=== PATIENT | female | born 1980 | race Two or more races ===

== ENCOUNTER 2020-10-07 04:49 | Day surgery (SDC) | payer OTHER ==
[2020-10-02 18:05] VITALS: BMI 34.0
[2020-10-07] MEDS ORDERED: oxyCODONE HCL 5 MG TABLET PO PRN (16:15)
[2020-10-07] MEDS ORDERED: IBUPROFEN 800 MG/8 ML IJ IVPB PRN (16:15)
[2020-10-07] MEDS ORDERED: ELECTROLYTE-148 SOLN 1,000 ML IV SCH (16:15)
[2020-10-07] MEDS ORDERED: ONDANSETRON 4 MG/2 ML VIAL IVPUSH PRN ×2 (16:15→17:56)
[2020-10-07] MEDS ORDERED: IBUPROFEN 600 MG TABLET (FP) PO PRN (16:15)
[2020-10-07] MEDS ORDERED: MIDAZOLAM HCL 2 MG/2 ML SINGLE DOSE VIAL ONE (16:36)
[2020-10-07] MEDS ORDERED: PROPOFOL 20 ML ONE (16:36)
[2020-10-07] MEDS ORDERED: DEXAMETHASONE SOD PHOSPHATE 4 MG/1 ML VIAL ONE (17:45)
[2020-10-07] MEDS ORDERED: LACTATED RINGERS SOLUTION 1,000 ML IV SCH (18:00)
[2020-10-07 20:10] VITALS: BP 116/56; PULSE 68; TEMP 98
== END 2020-10-07 19:55 | disposition home or self-care (01) ==
LOC: JASU-SURG 04:49
PROVIDERS: ATTEND Obstetrics & Gynecology
PROC: 0UB98ZZ Excision of Uterus, Via Natural or Artificial Opening Endoscopic (ICD-10-PCS; principal; 2020-10-07 15:30)
DX: D25.0 Submucous leiomyoma of uterus (principal)
CPT/HCPCS: 36415; 84703; 86850; 86900; 86901; 86922; 88305-TC; 94760